=== PATIENT | female | born 1985 | race Caucasian/White ===

== ENCOUNTER 2020-01-16 20:05 | Emergency (ER) | payer OTHER ==
[~2020-01-16] VITALS: Ht 175.3 cm; Wt 154.7 kg
== END 2020-01-16 21:15 | disposition home or self-care (01) ==
LOC: ER 20:05
DX: R21 Rash and other nonspecific skin eruption (principal)
CPT/HCPCS: 99282

== ENCOUNTER → 2020-03-27 | Outpatient (CLI) | payer OTHER ==
[2020-03-31 16:07] LABS: HPV 16 Negative (Negative); HPV 18 Negative (Negative); HPV OTHER HR TYPES Positive (Negative)
== END ==
LOC: LAB 20:18 → LAB SHORT 20:18
PROVIDERS: Family Medicine
DX: Z01.419 Encounter for gynecological examination (general) (routine) without abnormal findings (principal)
CPT/HCPCS: 87624; 87625; G0145

== ENCOUNTER → 2020-04-11 | Outpatient (CLI) | payer OTHER | END | disposition home or self-care (01) | LOC: PLD 11:14 → LAB SHORT 11:14 | DX: J06.9 Acute upper respiratory infection, unspecified (principal); Z20.828 Contact with and (suspected) exposure to other viral communicable diseases | CPT/HCPCS: U0003 ==

== ENCOUNTER 2023-06-09 02:15 | Emergency (ER) | payer OTHER ==
[~2023-06-09] VITALS: Ht 170.2 cm; Wt 117.9 kg
[2023-06-09] MEDS ORDERED: DELTASONE20 MG PO (04:03)
[2023-06-09 04:49] VITALS: BP 103/59
== END 2023-06-09 04:52 | disposition home or self-care (01) ==
LOC: ER 02:15
DX: L50.9 Urticaria, unspecified (principal)
CPT/HCPCS: 99283; J7512

== ENCOUNTER → 2024-01-19 | Outpatient (CLI) | payer OTHER ==
[~2024-01-19] MED LIST: DELTASONE20 MG PO
[2024-01-19 15:11] LABS: Bacterial Vaginosis PCR Negative (NEGATIVE); Candida glabrata-krusei, PCR NOT DETECTED (NOT DETECT)
[2024-01-19 15:14] LABS: Candida Group, PCR DETECTED (NOT DETECT)
== END ==
LOC: LAB SHORT 10:48 → LAB 10:48
PROVIDERS: Advanced Practice Midwife
DX: N76.0 Acute vaginitis (principal)
CPT/HCPCS: 87481; 87661; 87801

== ENCOUNTER 2024-10-22 03:13 | Emergency (ER) | payer OTHER ==
[~2024-10-22] VITALS: Ht 170.2 cm; Wt 136.1 kg
[2024-10-22] MEDS ORDERED: Amoxicillin/Clavulanate K 875 MG Tab PO ONE (06:20)
[2024-10-22] MEDS ORDERED: OXYC5 PO (06:44)
[2024-10-22] MEDS ORDERED: AMOCLA875 PO (06:44)
[2024-10-22 06:47] VITALS: BP 123/79
== END 2024-10-22 06:47 | disposition home or self-care (01) ==
LOC: ER 03:13
DX: K08.89 Other specified disorders of teeth and supporting structures (principal); F17.210 Nicotine dependence, cigarettes, uncomplicated; Z79.52 Long term (current) use of systemic steroids; Z91.048 Other nonmedicinal substance allergy status
CPT/HCPCS: 64405; 99282-25; A9270